=== PATIENT | female | born 1975 | race Caucasian/White ===

== ENCOUNTER 2018-05-01 06:37 | Emergency (ER) | payer MEDICARE, SELFPAY ==
[2018-05-01 06:38] VITALS: BP 129/84; PULSE 74; RESP 18; TEMP 36.5; O2SAT 96; BMI 48.1
[2018-05-01] MEDS: Ketorolac 30 MG/ML Syringe IM (06:57)
--- NOTE | 2018-05-01 07:03 | ED.DCSUM_ITS ---
- ER Visit Summary Date of Service: 05/01/18 Chief Complaint: Left shoulder pain History of Present Illness: The patient is a 42 F presenting for evaluation secondary to left shoulder pain. Patient reports that she intermittently has issues with arthritis of the left shoulder. Patient states that back when she lived in [place] she would go to her primary care physician who would do steroid injections for her that would improve this. Patient states that her last steroid injection was back in 2014. Patient reports that over the course the last day and a half she has had an onset of left shoulder pain. This was atraumatic, continuous and sharp in nature and worse with any sort of movement. She denies any presence of fevers. Physical Examination: Examination of the patient's upper extremity shows normal pulses normal distal sensation normal range of motion of the elbow wrist and hand. Patient has limited range of motion of the left shoulder secondary to pain. There is tenderness palpation mainly over the anterior of the joint, but some diffusely. No evidence of warmth erythema or effusion. No evidence of laxity with testing of the rotator cuff. Test Results: None indicated Emergency Department Course and Treatment: Patient presenting with left shoulder pain. Patient will be treated with Toradol in the emergency department and a Medrol pack at home. She will be given a referral to orthopedics. Disposition: Discharge Impression: 1. Left shoulder strain This note was generated with [employer] dictation software. It may contain incorrect words, spelling, and punctuation that were not noted in review of the chart prior to signing ED Disposition - Plan for ED Patient: Disposition: Home or Assisted Living Chief Complaint: Upper Extremity Injury Diagnosis: Shoulder pain, acute Instructions: ED Tendinitis Rotator Cuff Prescriptions: MethylPREDNISolone DosePak [Medrol DosePak] 4 mg PO UD #1 box Referrals: Galen Jauregui MD [STAFF PHYSICIAN] - 1 Week
== END 2018-05-01 07:22 | disposition home or self-care (01) ==
PROVIDERS: Emergency Provider Emergency Medicine; Family Provider Physician Assistant; PCP Physician Assistant
DX: S46.012A Strain of muscle(s) and tendon(s) of the rotator cuff of left shoulder, initial encounter (principal); M19.012 Primary osteoarthritis, left shoulder; X58.XXXA Exposure to other specified factors, initial encounter; Y93.9 Activity, unspecified; Y92.9 Unspecified place or not applicable; K21.9 Gastro-esophageal reflux disease without esophagitis; G40.909 Epilepsy, unspecified, not intractable, without status epilepticus; Z79.899 Other long term (current) drug therapy
CPT/HCPCS: 96372; 99282

== ENCOUNTER 2018-07-08 16:41 | Emergency (ER) | payer MEDICARE, SELFPAY ==
[2018-07-08 16:44] VITALS: BP 127/82; PULSE 71; RESP 18; TEMP 36.6; O2SAT 99; BMI 47.2
--- NOTE | 2018-07-08 16:54 | ED.DCSUM_ITS ---
- ER Visit Summary Date of Service: 07/08/18 Chief Complaint: Left shoulder pain History of Present Illness: The patient is a 42 F who has left shoulder pain. She has had pains for 3 months. She was seen here 3 months ago and then had follow-up with orthopedics. They did an injection in the shoulder and it felt better. Pain got worse recently. Is worse with movement. She has been trying Tylenol and Advil without any relief. She denies any falls or trauma. She states that she has issues with her shoulder for a while. Physical Examination: Vital signs reviewed. Left shoulder exam reveals tenderness over the AC joint and the coracoid area. There is no deltoid tenderness. She has limited range of motion secondary to the pain. She has 2+ radial pulses. Test Results: None performed Emergency Department Course and Treatment: This seems to be a chronic issue for this patient. Without any falls or trauma I do not feel the patient requires any imaging. I will give her a shot of Toradol here. I will give her a Medrol Dosepak for home. She will need to follow-up with Galen Jauregui again for a possible shoulder injection. Treatment Plan: [] Disposition: Discharge Impression: Left shoulder pain This note was generated with [employer] dictation software. It may contain incorrect words, spelling, and punctuation that were not noted in review of the chart prior to signing ED Disposition - Plan for ED Patient: Chief Complaint: Upper Extremity Injury Referrals: Mike Rodriguez PA [Primary Care Provider] -
--- NOTE | 2018-07-08 16:54 | ED.DEP ---
ED Disposition - Plan for ED Patient: Disposition: Home or Assisted Living Chief Complaint: Upper Extremity Injury Instructions: ED Shoulder Pain [facility] Prescriptions: MethylPREDNISolone DosePak [Medrol DosePak] 4 mg PO UD #1 box Referrals: Mike Rodriguez PA [Primary Care Provider] -
[2018-07-08] MEDS: Ketorolac 60 MG/2 ML Vial IM (17:03)
[2018-07-08 17:26] VITALS: RESP 14
== END 2018-07-08 17:27 | disposition home or self-care (01) ==
LOC: ED 17:05
PROVIDERS: Emergency Provider Emergency Medicine; Family Provider Physician Assistant; PCP Physician Assistant
DX: M25.512 Pain in left shoulder (principal); G89.29 Other chronic pain; J45.909 Unspecified asthma, uncomplicated; G40.909 Epilepsy, unspecified, not intractable, without status epilepticus; Z79.899 Other long term (current) drug therapy
CPT/HCPCS: 96372; 99282

== ENCOUNTER 2018-11-28 17:39 | Emergency (ER) | payer MEDICARE, SELFPAY ==
[2018-11-28 17:39] VITALS: BP 141/92; PULSE 83; RESP 16; TEMP 36.3; O2SAT 97; BMI 47.7
--- NOTE | 2018-11-28 18:05 | ED.DCSUM_ITS ---
- ER Visit Summary Date of Service: 11/28/18 Chief Complaint: Left shoulder pain History of Present Illness: The patient is a 43 F with left shoulder pain that started today. Worse after helping her son move. No direct trauma. No weakness or numbness. Patient has a history of chronic shoulder pain. Physical Examination: Patient has anterior left shoulder tenderness to palpation. No deformity. Range of motion painful but intact. Neurovascularly intact distally. No warmth or redness. Heart regular. Lungs clear. Skin appears unremarkable. Test Results: None indicated Emergency Department Course and Treatment: I suspect this is a strain from overuse. No indication for imaging. No risk factors or direct trauma. Patient will need medical treatment at this point. She received pain pills here as well as an anti-inflammatory. Will prescribe anti-inflammatories and muscle relaxers. Patient will follow-up with primary care for recheck. Treatment Plan: As above Disposition: Discharge Impression: 1. Left shoulder pain This note was generated with [employer] dictation software. It may contain incorrect words, spelling, and punctuation that were not noted in review of the chart prior to signing ED Disposition - Plan for ED Patient: Referrals: Mike Rodriguez PA [Primary Care Provider] -
--- NOTE | 2018-11-28 18:07 | ED.DEP ---
ED Disposition - Plan for ED Patient: Instructions: ED Sprain Shoulder Prescriptions: Ibuprofen [Motrin] 800 mg PO TID PRN PRN #20 tab PRN Reason: Pain cycloBENZAPRine HCl [Flexeril] 10 mg PO TID PRN #20 tab PRN Reason: Muscle Spasm Referrals: Mkie Rodriguez PA [Primary Care Provider] -
[2018-11-28] MEDS: HYDROcodone Bitartrate/Apap 5/325 Tablet PO (18:20)
[2018-11-28] MEDS: Ibuprofen 600 MG Tablet PO (18:20)
[2018-11-28 18:29] VITALS: PULSE 80; RESP 17; O2SAT 97
== END 2018-11-28 18:30 | disposition home or self-care (01) ==
PROVIDERS: Emergency Provider Emergency Medicine; Family Provider Physician Assistant; PCP Physician Assistant
DX: M25.512 Pain in left shoulder (principal); G89.29 Other chronic pain; G40.909 Epilepsy, unspecified, not intractable, without status epilepticus; E03.9 Hypothyroidism, unspecified; K90.0 Celiac disease; Z79.899 Other long term (current) drug therapy
CPT/HCPCS: 99283

== ENCOUNTER → 2019-01-17 | Outpatient (CLI) | payer MEDICARE, SELFPAY ==
--- NOTE | 2019-01-24 10:40 | STRESSREP ---
Stress Test Report Date: 01/17/2019 Procedure: Pharmacologic stress nuclear imaging study Indications: Shortness of breath with exertion Consent: Per the patient Procedure: The patient underwent pharmacologic (Regadenoson) evaluation with a peak heart rate of 121 beats per minute (69 %predicted maximal heart rate) and a peak blood pressure of 124/70 mmHg. The baseline ECG demonstrated normal sinus rhythm. EKG during lexiscan infusion revealed no significant change from baseline. EKG post infusion revealed no significant change from baseline [There were no cardiac dysrhythmias pretest, during pharmacologic infusion, or recovery]. [There was no complaint of chest discomfort during pharmacologic infusion or recovery]. The examination was discontinued secondary to completion of protocol. Impression: 1. Lexiscan stress test test is negative for Lexiscan infusion induced EKG changes of ischemia. 2. Lexiscan stress test test is negative for Lexiscan infusion induced chest pain. 3. Results of the nuclear portion of the test is as below Myocardial perfusion imaging study: Technique: The patient was injected with 14.6 millicuries of technetium 99m Cardiolite and subsequently rest SPECT Cardiolite nuclear imaging was obtained in the horizontal long, vertical long, and short axis views. The patient underwent pharmacologic (Regadenoson) evaluation. Please see above for details. The patient was injected with 44.4 millicuries of technetium 99m Cardiolite and subsequently stress SPECT Cardiolite nuclear imaging was obtained in the horizontal long, vertical long, and short axis views. A gated Cardiolite study at peak stress was obtained. Interpretation: Rest and stress SPECT Cardiolite nuclear imaging status post realignment, normalization, and attenuation correction demonstrate normal myocardial radioisotope uptake. There is extracardiac uptake adjacent to the inferior wall on both the rest and stress images. Gated images reveal hypokinesis of the basal portion of the heart, which is probably artifactual. The reported LVEF is 44 % which could be an underestimation due to the extracardiac uptake. Impression: 1. There is no evidence of significant ischemia or infarction. 2. Estimated ejection fraction is 44% which could be erroneous. Consider other modalities such as echocardiogram to evaluate ejection fraction if clinically indicated This note was generated with [employer] software. It may contain incorrect words, spelling, and punctuation that were not noted in checking the note before signing.
== END | disposition home or self-care (01) ==
LOC: CVS 06:13
PROVIDERS: Family Provider Family Medicine; PCP Family Medicine; Referring Provider Family Medicine; Visit Provider Family Medicine
DX: R06.02 Shortness of breath (principal)
CPT/HCPCS: 78452; 93017; A9500; A4216; J2785

== ENCOUNTER 2019-02-17 18:29 | Emergency (ER) | payer MEDICARE, SELFPAY ==
[2019-02-17 18:31] VITALS: BP 104/71; PULSE 76; RESP 25; TEMP 36.5; O2SAT 100; BMI 49.4
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
[2019-02-17] MEDS: Ipratropium/Albuterol Sulfate 3 ML AMPUL.NEB INHALATION (19:09)
[2019-02-17 19:10] VITALS: PULSE 71; RESP 18
[2019-02-17] MEDS: predniSONE 20 MG Tablet 60 MG PO (19:21)
--- NOTE | 2019-02-17 19:53 | ED.VISSUMM ---
- ER Visit Summary Date of Service: 02/17/19 Chief Complaint: Wheezing History of Present Illness: The patient is a 43 F with wheezing for 2 months. Symptoms are associated with coughing. Denies sputum or fevers. She has tried nebulizers and inhalers with minimal improvement. She is not currently on steroids or antibiotics. Patient denies any history of heart disease or PE. She does have a history of asthma. Physical Examination: Afebrile and vital signs unremarkable. Speaking in full sentences without any acute distress. HEENT exam unremarkable. Airway intact. Lungs show wheezing bilaterally with expiration. Heart regular. Calves soft and supple. No edema. Pulses strong and equal. Test Results: Chest x-ray negative. Emergency Department Course and Treatment: Patient treated with aerosols and prednisone. This is likely bronchospasm. Nothing to suggest ACS, PE, dissection, or infectious process. She will follow-up with her physician. Return for any new or worsening issues. Treatment Plan: As above Disposition: Discharge Impression: 1. Bronchospasm This note was generated with [employer] dictation software. It may contain incorrect words, spelling, and punctuation that were not noted in review of the chart prior to signing ED Disposition - Plan for ED Patient: Referrals: Jose Qureshi MD [Primary Care Provider] -
--- NOTE | 2019-02-17 19:55 | ED.DEP ---
ED Disposition - Plan for ED Patient: Instructions: ASTHMA, Acute (Adult) Prescriptions: Prednisone 10 mg PO UD #33 tab Prescription Printed Referrals: Jose Qureshi MD [Primary Care Provider] -
[2019-02-17 20:01] VITALS: BP 100/74; PULSE 77; RESP 22; O2SAT 98
== END 2019-02-17 20:01 | disposition home or self-care (01) ==
LOC: ED 19:14
PROVIDERS: Emergency Provider Emergency Medicine; Family Provider Family Medicine; PCP Family Medicine
DX: J98.01 Acute bronchospasm (principal); R51 Headache; J45.909 Unspecified asthma, uncomplicated; K21.9 Gastro-esophageal reflux disease without esophagitis; E03.9 Hypothyroidism, unspecified; G40.909 Epilepsy, unspecified, not intractable, without status epilepticus; Z79.899 Other long term (current) drug therapy; Z87.891 Personal history of nicotine dependence
CPT/HCPCS: 71046; 94640; 99283

== ENCOUNTER 2019-02-22 19:45 | Emergency (ER) | payer MEDICARE, SELFPAY ==
[2019-02-22 19:46] VITALS: BP 130/75; PULSE 88; RESP 15; TEMP 37.1; O2SAT 95; BMI 47.8
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
[2019-02-22] MEDS: Ketorolac 60 MG/2 ML Vial IM (20:23)
[2019-02-22] MEDS: Orphenadrine 60 MG/2 ML Ampul IM (20:23)
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
== END 2019-02-22 21:26 | disposition home or self-care (01) ==
PROVIDERS: Emergency Provider Emergency Medicine; Family Provider Family Medicine; PCP Family Medicine
DX: S16.1XXA Strain of muscle, fascia and tendon at neck level, initial encounter (principal); S39.012A Strain of muscle, fascia and tendon of lower back, initial encounter; V43.62XA Car passenger injured in collision with other type car in traffic accident, initial encounter; Y93.9 Activity, unspecified; Y92.9 Unspecified place or not applicable; E66.9 Obesity, unspecified; E03.9 Hypothyroidism, unspecified; F41.9 Anxiety disorder, unspecified; G40.909 Epilepsy, unspecified, not intractable, without status epilepticus; Z79.899 Other long term (current) drug therapy; Z87.891 Personal history of nicotine dependence
CPT/HCPCS: 72040; 72100; 96372; 99282

== ENCOUNTER → 2019-05-06 13:38 | Outpatient (CLI) | payer MEDICARE, SELFPAY ==
[2019-05-06 13:27] VITALS: BMI 46.9
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
== END ==
LOC: HPRAD 13:39
PROVIDERS: Family Provider Family Medicine; PCP Family Medicine; Referring Provider Orthopaedic Surgery; Visit Provider Orthopaedic Surgery
DX: M25.562 Pain in left knee (principal)
CPT/HCPCS: 73564

== ENCOUNTER 2021-12-04 10:59 | Observation (INO) | payer MEDICARE, SELFPAY ==
[2021-12-04] VITALS (12 sets, daily range): BP systolic 110–139; BP diastolic 72–112; PULSE 72–102; RESP 15–18; TEMP 36.2–36.9; O2SAT 94–100; BMI 46.3
--- NOTE | 2021-12-04 | APP_PTH ---
PATIENT: JI MENA LOC: [facility] U#:[id number] AGE/SX: 46/F ROOM: [facility] [place] RE12/04/[address]: Dr. Rama Holguin MD : 1975 BED: 1 DIS: 12/05/2021 SPEC #: [id number] RECD: 12/06/21 09:16 STATUS: ARIS REQ #: [id number] TRENT: 12/04/21 00:[address]: Rama Holguin DEPT: SURGICAL PATHOLOGY RECD BY: Wale Bates ENTERED: 12/06/21 09:51 SP TYPE: APPENDIX OTHR DR: Dr. Jose Qureshi MD Tissues: Appendix, NOS Procedures: Surgery Specimen Level III HEADER OPERATION: Laparoscopic appendectomy PRE-OP DIAGNOSIS: Acute appendicitis TISSUE SUBMITTED: Appendix MICROSCOPIC DIAGNOSIS Appendix, appendectomy: Acute appendicitis. AM:leonora 12/07/2021 MICROSCOPIC DESCRIPTION Slides are reviewed. GROSS DESCRIPTION Received in fixative is one container labeled with the patient's name and designated appendix. The specimen consists of an appendix measuring 4 cm in length and up to 0.8 cm in diameter. The attached periappendiceal adipose tissue measures up to 1 cm in width. The serosa is congested. No obvious perforation is identified. The lumen does not contain any fecalith. Assurance Senior sections are submitted in one cassette. / SJ:rg 12/06/2021 TC:2 CPT: 79454
--- NOTE | 2021-12-04 11:19 | CT_ITS ---
We are attempting to reach an attending provider to discuss findings. An addendum with communication details will be sent when the communication is complete. STUDY: CT ABDOMEN AND PELVIS WITH CONTRAST REASON FOR EXAM: Female, 46 years old. Abdominal pain RADIATION DOSAGE (If Supplied By Facility): CTDIvol = ( 17.07 ) mGy, DLP = ( 1379.28 ) mGycm TECHNIQUE: Transaxial images were obtained from the dome of the diaphragm to the symphysis pubis without oral contrast. IV 100mL Isovue-370 was administered. Sagittal and coronal images were reconstructed. Individualized dose optimization techniques were used for this CT. COMPARISON: None. FINDINGS: The visualized lung bases are unremarkable. The visualized portions of the heart are within normal limits. Mild diffuse fatty infiltration of the liver. Normal gallbladder and extrahepatic biliary system. Normal spleen. There is diffuse atrophy of the pancreas. Normal bilateral adrenal glands. Normal right kidney. Normal left kidney. Normal visualized stomach. Normal small intestine. The sigmoid colon is not well-distended. No evidence of acute diverticulitis. Mild thickening of the appendix measuring about 8 to 9 mm with subtle periappendiceal stranding suggestive of early acute appendicitis. Normal abdominal aorta. Normal inferior vena cava. Normal retroperitoneum. Normal urinary bladder. There is absence of the uterus consistent with a prior hysterectomy. There is a small umbilical hernia containing fat. No demonstrated acute osseous changes. CT/Abdomen/Pelvis W IV Cont ONLY IMPRESSION: Mild thickening of the appendix with mild periappendiceal stranding suggestive of early acute appendicitis. Electronically Signed: Gilles Tellez MD at 12:42 EDT ,
--- NOTE | 2021-12-04 11:20 | EX.ED.DYSGE1 ---
HPI History of Present Illness Chief Complaint: Abd Pain Informant: patient Narrative Narrative: Patient started with right mid quadrant abdominal pain last night about 8 PM. She states she was yawning when this was first noticed but she does not know if that caused it. She had eaten a high fat cheesy sour cream fried potato meal that evening. However, she points really to the lower abdomen as the area of pain not the right upper quadrant. The triage note mentions that she gets pain when she takes a deep breath. She states that she does not really get pain with a deep breath but if she yawns and stretches she gets increase in pain. She did eat this morning. She is not sure if it made it worse or not. She has not had nausea vomiting or diarrhea. Denies urinary symptoms. Occasionally the pain will wrap around toward the back but not always. She states she always has some back pain and its not really different than baseline. She has not been syncopal or presyncopal. She has no chest pain dyspnea cough hemoptysis leg swelling. She has had no recent travel surgery immobilization personal or family history of DVT or PE. Where she points to the pain is clearly well below the rib level. It is nowhere near the lungs. [facility] Medical History Hypothyroid Seizures Home Medications levothyroxine 200 mcg PO QHS 04/20/16 [History Last Taken 05/25/17 06:00] omeprazole 20 mg PO DAILY 04/20/16 [History Last Taken 05/25/17 06:00] melatonin 5 mg PO QHS 08/04/16 [History Last Taken Unknown] Albuterol Aerosols 1 dose IH Q4H PRN PRN 02/17/19 [History Last Taken Unknown] lamotrigine 200 mg PO BID 12/04/21 [History Last Taken Unknown] montelukast [Singulair] 10 mg PO DAILY 12/04/21 [History Last Taken Unknown] topiramate [Topamax] 100 mg PO QHS 12/04/21 [History Last Taken Unknown] Allergy/AdvReac Type Severity Reaction Status Date / Time No Known Allergies Allergy Verified 12/04/21 11:02 Surgical History H/O arthroscopy of left knee H/O: hysterectomy Social History Smoking Status: Unknown if ever smoked ROS ROS ED Constitutional Constitutional ED: Denies chills or fever(s) ENT ENT ED: Denies rhinorrhea or sore throat Cardiovascular Cardiovascular: Denies chest pain, palpitations or racing heartbeat Respiratory/Chest Respiratory/Chest: Denies cough, dyspnea, dyspnea on exertion or sputum Gastrointestinal Gastrointestinal: Reports abdominal pain; Denies constipation, diarrhea, melena, nausea or vomiting Genitourinary Genitourinary ED: Denies dysuria or hematuria Musculoskeletal Musculoskeletal: Denies myalgias Integumentary Denies rash Neurologic Neurologic: Denies paresthesias or weakness Endocrine Endocrinology: Denies polydipsia or polyuria Allergic/Immunologic Allergic/Immunologic ED: Denies urticaria EXAM Physical Exam Const Vital Signs: 12/04/21 11:00 12/04/21 13:09 Temperature 98.4 F Temperature Source Temporal Pulse Rate 102 H 72 Respiratory Rate 16 16 Blood Pressure 139/112 H 126/84 H Blood Pressure Mean 121 98 Pulse Ox 97 98 Oxygen Delivery Method Room Air Room Air Positive well nourished, well developed and obese General Appearance ED: well developed and NAD; Negative for cyanotic or diaphoretic Nutritional Appearance: obese HEENT Reports moist mucous membranes Eyes General Eye ED: Negative for pale conjunctiva or scleral icterus Neck no JVD Chest Wall inspection of chest normal and palpation of chest normal Chest Narrative: No pain with palpation. No pain when I have her sit up or take a deep breath. Resp normal respiratory effort and clear to auscultation bilaterally Effort and Inspection: Negative for pain with movement Auscultation: Negative for rales, rhonchi or wheezes Cardio regular rate, regular rhythm and no murmurs GI normal to inspection, nondistended, normoactive bowel sounds GI Narrative: Patient does have tenderness slightly in the right lower quadrant but none really in the right upper area. No real CVA tenderness either. I see no rashes. No rebound or guarding. Palpation: soft Back/Spine no CVA tenderness Extremity normal to inspection General Extremety ED: Negative for edema or tenderness General Extremity: Negative for edema Neuro oriented x3 Sensorium / Orientation: alert Psych mental status grossly normal Skin no rashes or lesions noted MDM MDM MDM Narrative Medical decision making narrative: Patient has a very slight elevation of white count 11.8 which is nonspecific. Electrolytes, liver function test lipase are essentially normal. Minimal elevation of alkaline phosphatase at 120. Urine is clear. Her CAT scan shows what appears to be a retrocecal appendix that has some thickening and stranding consistent with appendicitis. This is where she is tender toward the right lower quadrant right below the midline. She is not down very low but her appendix wraps up higher than his than normal. Even though her presentation and onset is unique, I think the progression of pain, constant pain, white count, tenderness and this CAT scan finding does support diagnosis of acute appendicitis. I have surgery on page at this time. I will give the patient antibiotics. I explained the situation to her and her . Lab Data Attestation: I reviewed the patient's lab results. Labs: Laboratory Results - last 24 hr 12/04/21 12/04/21 12/04/21 11:20 11:20 11:27 WBC 11.8 H RBC 5.07 Hgb 12.7 Hct 41.1 MCV 81.1 MCH 25.0 L MCHC 30.9 L RDW Std Deviation 47.4 H RDW Coeff of Anoop 16.2 H Plt Count 316 MPV 9.6 Immature Gran % (Auto) 0.400 Neut % (Auto) 67.6 Lymph % (Auto) 19.8 [place] % (Auto) 7.1 Eos % (Auto) 4.2 Baso % (Auto) 0.9 Absolute Neuts (auto) 8.0 H Absolute Lymphs (auto) 2.33 Nucleated RBC % 0 Sodium 139 Potassium 3.7 Chloride 107 Carbon Dioxide 28.0 Anion Gap 4 L BUN 14 Creatinine 0.89 Estim Creat Clear Calc 72.37 Est GFR (MDRD) Af Amer 88 Est GFR (MDRD) Non-Af 72 BUN/Creatinine Ratio 15.8 Glucose 118 H Calcium 9.0 Total Bilirubin 0.30 AST 13 L ALT 26 Alkaline Phosphatase 120 H Total Protein 7.1 Albumin 3.2 Globulin 3.9 Albumin/Globulin Ratio 0.8 L Lipase 81 Urine Color Yellow Urine Clarity Clear Urine pH 6.5 Ur Specific [place] 1.015 Urine Protein Negative Urine Glucose (UA) Normal Urine Ketones Negative Urine Occult Blood Negative Urine Nitrite Negative Urine Bilirubin Negative Urine Urobilinogen Normal Ur Leukocyte Esterase Negative Urine RBC 0 SEEN Urine WBC 0 SEEN Ur Squamous Epith Cells 0 SEEN Urine Bacteria 0 SEEN Urine Mucus 0 SEEN Radiography Diagnostic Testing: Clinical Impression(s) from Imaging Studies Abdomen/Pelvis CT 12/04/21 11:19 IMPRESSION: Mild thickening of the appendix with mild periappendiceal stranding suggestive of early acute appendicitis. Electronically Signed: Gilles Tellez MD at 12:42 EDT , ADDENDUM: 12/04/21 1257 IMPRESSION: Mild thickening of the appendix with mild periappendiceal stranding suggestive of early acute appendicitis. N.B. : The above Results were Read Back by Gilles Tellez MD to JOSE MARIA MD, and understanding confirmed on 12/04/2021 12:50:37 (ET). Electronically Signed: Gilles Tellez MD at 12:42 EDT , Discharge Plan Dx/Rx/DC Orders Clinical Impression: Acute appendicitis, Leukocytosis Disposition Disposition: Acute Care Hospital [facility] Discharge Date/Time: 12/04/21 14:31
[2021-12-04 11:28] LABS: Absolute Lymphocyte Count 2.33 X10^3/uL (0.83-4.51); Basophil% 0.9 % (0-1); Eosinophil# 0.49 X10^3/uL; Eosinophils% 4.2 % (0-5); Hematocrit 41.1 % (37-47); Hemoglobin 12.7 g/dL (12.0-15.0); Lymphocyte # 2.33 X10^3/ul (0.83-4.51); Lymphocyte % 19.8 % (19-41); Mean Corp Hgb Conc 30.9 g/dL (32-36); Mean Corpuscular Volume 81.1 fL (81-99); Mean Platelet Vol. 9.6 fl (6.2-12.0); Monocyte# 0.83 X10^3/uL; Monocyte% 7.1 % (0-10); NRBC Flagged by Analyzer 0 % (0-5); Neutrophil # 7.96 X10^3/uL (2.7-7.7); Neutrophil % 67.6 % (47-70); Platelet Count 316 K/mm3 (150-450); RBC Distribution Width CV 16.2 % (11.6-14.6); RBC Distribution Width SD 47.4 fl (35.1-43.9); Red Blood Count 5.07 M/mm3 (4.2-5.4); White Blood Count 11.8 K/mm3 (4.4-11.0)
[2021-12-04] MEDS: Ondansetron 4 MG/2 ML Vial IV (11:36)
[2021-12-04] MEDS: Morphine 4 MG/ML Syringe IV (11:36)
[2021-12-04 11:44] LABS: ALB/GLOB Ratio 0.8 RATIO (0.9-2.4); AST(SGOT) 13 U/L (15-37); Alanine Aminotransfer ALT/SGPT 26 U/L (13-56); Albumin, Serum 3.2 g/dL (3.2-5.0); Alkaline Phosphatase 120 U/L (45-117); Anion Gap 4 (5-15); BUN 14 mg/dL (7-18); BUN/Creat Ratio 15.8 RATIO (10-20); Chloride 107 mmol/L (98-107); Creatinine, Serum 0.89 mg/dL (0.55-1.02); EST Glomerular Filtration Rate 72 mL/min (>60); Est Glom Filt Rate - Afr Amer 88 mL/min (>60); Estimated Creatinine Clearance 72.37 ml/min; Globulin 3.9 g/dL (2.2-4.2); Glucose 118 mg/dL (74-106); Lipase 81 U/L (73-393); Potassium 3.7 mmol/L (3.5-5.1); Protein, Total 7.1 g/dL (6.4-8.2); Sodium Level 139 mmol/L (136-145)
[2021-12-04 11:47] LABS: Bacteria 0 SEEN /hpf (None Seen); Color, Urine Yellow (Yellow); Glucose, Dipstick Normal (Normal); Ketone-Dipstick Negative (Negative); Leukocyte Esterase-Dipstick Negative /ul (Negative); Mucous, Urine 0 SEEN /hpf (<or=2+); Nitrite-Dipstick Negative (Negative); Occult Blood-Urine Negative /ul (Negative); Protein-Dipstick Negative (Negative); Red Blood Cells-Urine 0 SEEN /hpf (0-5); Specific Gravity, Urine 1.015 (1.002-1.030); Squamous Epithelial Cells - UA 0 SEEN /hpf (5-10); Urine Bilirubin Dipstick Negative (Negative); Urine Clarity Clear (Clear); Urine Urobilinogen Normal (Normal); Urine pH 6.5 (5.0 - 8.0); White Blood Cells 0 SEEN /hpf (0-5)
--- NOTE | 2021-12-04 13:42 | HP.PCM.SX_ITS ---
HPI - General HPI Narrative JI MENA, is a 46 F who presents with < 1 day history of abdominal pain, began yesterday evening. She denies nausea/emesis. She denies fevers. She presented to [facility] ED and underwent evaluation. [facility] Medical History Hypothyroid Seizures Home Medications levothyroxine 200 mcg PO QHS 04/20/16 [History Last Taken 05/25/17 06:00] omeprazole 20 mg PO DAILY 04/20/16 [History Last Taken 05/25/17 06:00] melatonin 5 mg PO QHS 08/04/16 [History Last Taken Unknown] Albuterol Aerosols 1 dose IH Q4H PRN PRN 02/17/19 [History Last Taken Unknown] lamotrigine 200 mg PO BID 12/04/21 [History Last Taken Unknown] montelukast [Singulair] 10 mg PO DAILY 12/04/21 [History Last Taken Unknown] topiramate [Topamax] 100 mg PO QHS 12/04/21 [History Last Taken Unknown] Allergy/AdvReac Type Severity Reaction Status Date / Time No Known Allergies Allergy Verified 12/04/21 11:02 Surgical History H/O arthroscopy of left knee H/O: hysterectomy Social History Smoking Status: Unknown if ever smoked ROS Constitutional Constitutional: Denies fever(s) or weight loss Respiratory/Chest Respiratory/Chest: Denies productive cough Gastrointestinal Gastrointestinal: Reports abdominal pain Genitourinary Genitourinary: Denies hematuria Musculoskeletal Musculoskeletal: Reports joint pain Integumentary Integumentary: Reports jaundice Neurologic Neurologic: Denies focal weakness Vital Signs Vital Signs Vital Signs: 12/04/21 11:00 12/04/21 13:09 Temperature 98.4 F Temperature Source Temporal Pulse Rate 102 H 72 Respiratory Rate 16 16 Blood Pressure 139/112 H 126/84 H Blood Pressure Mean 121 98 Pulse Ox 97 98 Oxygen Delivery Method Room Air Room Air Weight Weight: 130.181 kg Body Mass Index (BMI) 46.3 Physical Exam Const oriented x3 Resp normal respiratory effort Cardio regular rate GI GI Narrative: abdomen is soft but tender in RLQ and morbidly obese Extremity no clubbing, cyanosis or edema Results Lab / Micro Data Result Diagrams: 12/04/21 11:20 12/04/21 11:20 Labs: Laboratory Results - last 24 hr 12/04/21 11:20: WBC 11.8 H, RBC 5.07, Hgb 12.7, Hct 41.1, MCV 81.1, MCH 25.0 L, MCHC 30.9 L, RDW Std Deviation 47.4 H, RDW Coeff of Anoop 16.2 H, Plt Count 316, MPV 9.6, Immature Gran % (Auto) 0.400, Neut % (Auto) 67.6, Lymph % (Auto) 19.8, [place] % (Auto) 7.1, Eos % (Auto) 4.2, Baso % (Auto) 0.9, Absolute Neuts (auto) 8.0 H, Absolute Lymphs (auto) 2.33, Nucleated RBC % 0 12/04/21 11:20: Sodium 139, Potassium 3.7, Chloride 107, Carbon Dioxide 28.0, Anion Gap 4 L, BUN 14, Creatinine 0.89, Estim Creat Clear Calc 72.37, Est GFR (MDRD) Af Amer 88, Est GFR (MDRD) Non-Af 72, BUN/Creatinine Ratio 15.8, Glucose 118 H, Calcium 9.0, Total Bilirubin 0.30, AST 13 L, ALT 26, Alkaline Phosphatase 120 H, Total Protein 7.1, Albumin 3.2, Globulin 3.9, Albumin/Globulin Ratio 0.8 L, Lipase 81 12/04/21 11:27: Urine Color Yellow, Urine Clarity Clear, Urine pH 6.5, Ur Specific [place] 1.015, Urine Protein Negative, Urine Glucose (UA) Normal, Urine Ketones Negative, Urine Occult Blood Negative, Urine Nitrite Negative, Urine Bilirubin Negative, Urine Urobilinogen Normal, Ur Leukocyte Esterase Negative, Urine RBC 0 SEEN, Urine WBC 0 SEEN, Ur Squamous Epith Cells 0 SEEN, Urine Bacteria 0 SEEN, Urine Mucus 0 SEEN Radiology Impression Abdomen/Pelvis CT 12/04/21 11:19 IMPRESSION: Mild thickening of the appendix with mild periappendiceal stranding suggestive of early acute appendicitis. Electronically Signed: Gilles Tellez MD at 12:42 EDT Reading Location ID and State: [facility] / [place] Tel , Service support , ADDENDUM: 12/04/21 1257 IMPRESSION: Mild thickening of the appendix with mild periappendiceal stranding suggestive of early acute appendicitis. N.B. : The above Results were Read Back by Gilles Tellez MD to JOSE MARIA MD, and understanding confirmed on 12/04/2021 12:50:37 (ET). Electronically Signed: Gilles Tellez MD at 12:42 EDT , Assessment & Plan Assessment/Plan (1) Acute appendicitis: PLAN: Patient is a 46 y/o morbidly obese WF with abdominal pain and acute appendicitis by CT scan I have offered laparoscopic appendectomy I have explained the procedure to the patient and her who is present with her.. I have counseled the patient as to the risks of the procedure, including but not limited to: infection, bleeding, injury to any blood vessels/nerves, scar tissue, injury to any intraabdominal organs, injury to kidney/ureters, injury to bowel/bladder, intraabdominal abscess/bleeding, hernias at incisional sites, wound infections, possible open procedure, complications of anesthesia, postoperative pneumonia/cardiac problems/blood clots etc. the patient understands. She wishes to proceed. I have answered all questions to the patient?s satisfaction and the patient has no further questions.
--- NOTE | 2021-12-04 14:26 | NURSING ---
MED SURG OBS WAND APPENDICITIS
[2021-12-04] MEDS: Lidocaine 2% /Epi 1:100 (50ml) 50 ML Vial (15:09)
--- NOTE | 2021-12-04 16:00 | PCM.OPRPT ---
Report of Operation Date of Procedure: 12/04/21 Pre-Operative Diagnosis: acute appendicitis Post-Operative Diagnosis: same as above Surgery/Procedure Performed:: laparoscopic appendectomy Description of Surgical Findings:: morbidly obese patient with acute appendicitis not perforated Surgeon: Rama Holguin monument setter helper: Suad Drummond Type of Anesthesia: General Anesthesiologist: Theresa Chandler Specimen's removed: appendix Estimated Blood Loss (mL): 25 Fluids Replaced: 300 ml RL Description of Procedure: After informed consent was obtained, the patient was brought into the operating room. Appropriate time out protocol was followed, She was then placed in the supine position on the operating table. The patient was then placed under general anesthesia. The patient?s abdomen was then prepped with a sterile surgical skin preparation and sterile surgical drapes were placed. An area above the umbilicus was grasped with penetrating clamps and the skin and subcutaneous tissues were infiltrated with local anesthetic with epinephrine. A skin incision was then made. A Veress needle was then inserted into the intraabdominal cavity and checked to be in the proper position with a normal saline drop test. A CO2 pneumoperitoneum was then created. Once this was achieved, the Veress needle was removed and an 11 mm trocar was placed in its stead. A 10 mm laparoscope was then inserted into the trocar. Careful examination of the intraabdominal contents was then done. There was no evidence of injury to any internal organs from placement of the Veress needle or the trocar. Under direct visualization, a 12mm suprapubic trocar and a 5mm periumbilical trocar and then a 5mm lateral right trocar was placed in addition for better retraction of the patient's tissues. The skin and subcutaneous tissues at these sites were first infiltrated with local anesthetic with epinephrine. Attention was then directed to the right lower quadrant. The appendix was visualized. It appeared inflamed and edematous. The mesentery of the appendix was taken down by cauterizing the tissue from the free edge to the base of the appendix with the Harmonic scalpel. Once the base of the appendix was freed of surrounding tissues, then the linear gastrointestinal stapling device was brought into the abdominal cavity via the 12mm port and placed across the base of the appendix. The stapling device was fired, thus stapling across the base of the appendix and transecting it simultaneously. The appendix was then placed in an Endobag and this was brought out through the suprapubic trocar. The appendix was then forwarded to Pathology for analysis. The appendiceal stump was carefully examined. There was some oozing for which surgicel was applied. At time of closure, there was no evidence of any active bleeding or fecal leakage. The surrounding tissues were also examined and there was no evidence of any active bleeding or fecal/bile leakage. The intraabdominal cavity was examined and there was no evidence of further inflammation or tissue abnormality. There was no evidence of any purulent peritoneal fluid. The CO2 pneumoperitoneum was released and all trocars were removed intact. The suprapubic fascia was reapproximated with a figure-of-8 vicryl suture. All skin incisions were reapproximated with monocryl suture. Cavilon and steristrips were applied to reinforce skin closure and proper sterile dressings were placed. The patient was then extubated and brought to the Recovery Room in stable condition. Complications none noted Admit VTE Documentation VTE Present on Admission: Yes VTE Mechan Device Prophylaxis: SCD's
[2021-12-04] MEDS: HYDROcodone Bitartrate/Apap 5/325 Tablet PO ×2 (18:00→21:46)
[2021-12-04] MEDS: 0.9% Normal Saline 1,000 ML 125 ML IV (18:01)
[2021-12-04] MEDS: Topiramate 100 MG Tablet PO (21:46)
[2021-12-04] MEDS: lamoTRIgine 100 MG Tablet 200 MG PO (21:46)
[2021-12-05 02:30] VITALS: BP 115/57; PULSE 86; RESP 16; TEMP 36.8; O2SAT 95
[2021-12-05] MEDS: 0.9% Normal Saline 1,000 ML 125 ML IV (05:58)
[2021-12-05] MEDS: Levothyroxine 100 MCG Tablet 200 MCG PO (06:00)
[2021-12-05] MEDS: HYDROcodone Bitartrate/Apap 5/325 Tablet PO ×3 (06:02→14:20)
[2021-12-05 08:45] VITALS: BP 101/68; PULSE 82; RESP 16; TEMP 36.6; O2SAT 96
[2021-12-05] MEDS: Montelukast 10 MG Tablet PO (10:02)
[2021-12-05] MEDS: lamoTRIgine 100 MG Tablet 200 MG PO (10:02)
[2021-12-05] MEDS: Pantoprazole Sodium 20 MG Tablet PO (10:02)
--- NOTE | 2021-12-05 11:54 | PCM.DC ---
Discharge Instructions Follow Up Care Test Results: Test results from this visit will be discussed in further detail at your follow-up appointment, if applicable. Discharge Plan Admission Admit Date/Time: 12/04/21 13:47 Attending Provider: Rama Holguin Primary Care Provider: Jose Qureshi Instructions Additional Instructions / Restrictions: Recommended pain control regimen - May take 600 mg ibuprofen (Motrin) and then in 3-4 hours, may take 650 mg acetaminophen (Tylenol), then in 3-4 hours may take 600 mg ibuprofen, then in 3-4 hours may take 650 mg acetaminophen and so on for 2-3 days May take narcotic pain medication for pain that is not controlled by above and at night for comfort through the night Leave dressings in place May shower, do not scrub in the areas of the dressings as they may unravel. If they become overly soiled you may remove them but leave incision site open to air. Do not soak - no tub baths/swimming Ice applied to areas of discomfort may help No lifting/pushing/pulling greater than 20 pounds for two weeks Stay on liquid type diet for a couple of days and then advance slowly to a regular diet as tolerated. Avoid carbonated beverages for a few days as this will cause abdominal bloating and thus discomfort after our surgery. Please call my office for an appointment to see me in 1-2 weeks. Office number is If any questions, please call my office at and ask the chief operator synthesis for the general surgery nurses desk Discharge Orders/Prescriptions Prescriptions: New hydrocodone-acetaminophen 5-325 mg tablet 1 tab PO Q8H 5 Days Qty: 15 RF: 0 No Action levothyroxine 175 MCG tablet 200 mcg PO QHS RF: 0 omeprazole 20 MG capsule 20 mg PO DAILY RF: 0 melatonin 5 MG tablet 5 mg PO QHS RF: 0 Albuterol Aerosols 1 dose IH Q4H PRN PRN (Reason: Sob &/Or Wheezing) RF: 0 lamotrigine 200 mg tablet 200 mg PO BID RF: 0 topiramate [Topamax] 100 mg Tablet 100 mg PO QHS RF: 0 montelukast [Singulair] 10 mg Tablet 10 mg PO DAILY RF: 0 Referrals / Follow Up: Jose Qureshi MD [Primary Care Provider] -
--- NOTE | 2021-12-05 11:56 | PCM.PN.SRG ---
Subjective Subjective patient with some back pain and abdominal pain loathe to ambulate or move Objective Data Objective Data Vital Signs: Vital Signs Temp Pulse Resp BP Pulse Ox 97.8 F 82 16 101/68 96 12/05/21 08:45 12/05/21 08:45 12/05/21 08:45 12/05/21 08:45 12/05/21 08:45 Oxygen Flow Rate (L/min) 2 Oxygen Delivery Method Room Air Weight: 130.181 kg Body Mass Index (BMI) 46.3 Intake & Output: Intake and Output for Last 24 Hours 12/03/21 12/04/21 12/05/21 23:59 23:59 23:59 Intake Total 1270.83 / 1270.83 622.92 / 622.92 Output Total 300 / 300 Balance 970.83 / 970.83 622.92 / 622.92 Lab / Micro Data Result Diagrams: 12/04/21 11:20 12/04/21 11:20 Micro: Microbiology 12/04/21 14:04 Nasal Secretion SARS-CoV-2 Antigen (Rapid) - Final Radiography Diagnostic Testing: Radiology Impression Abdomen/Pelvis CT 12/04/21 11:19 IMPRESSION: Mild thickening of the appendix with mild periappendiceal stranding suggestive of early acute appendicitis. Electronically Signed: Gilles Tellez MD at 12:42 EDT , ADDENDUM: 12/04/21 1257 IMPRESSION: Mild thickening of the appendix with mild periappendiceal stranding suggestive of early acute appendicitis. N.B. : The above Results were Read Back by Gilles Tellez MD to JOSE MARIA MD, and understanding confirmed on 12/04/2021 12:50:37 (ET). Electronically Signed: Gilles Tellez MD at 12:42 EDT , Physical Exam Const alert and oriented x3 Resp normal respiratory effort GI GI Narrative: abdomen is soft and obese, dressings intact Assessment & Plan Assessment/Plan (1) Status post laparoscopic appendectomy: PLAN: discharge to home patient counseled that she needs to ambulate or she is at risk for blood clots and/or pneumonia, also told patient to do incentive spirometry She can stay on liquid diet, encourage water intake (she doesn't like the taste of water because it has no taste), I have recommended that she avoid carbonated beverages for a few days She can follow up with me as an outpatient
[2021-12-05 14:21] VITALS: BP 118/81; PULSE 80; RESP 18; TEMP 36.6; O2SAT 97
== END 2021-12-05 14:58 | disposition home or self-care (01) ==
LOC: ED 14:16 → MS3 17:00
PROVIDERS: Admitting Provider Surgery; Emergency Provider Emergency Medicine; PCP Family Medicine; Visit Provider Surgery
PROC: 0DTJ4ZZ Resection of Appendix, Percutaneous Endoscopic Approach (ICD-10-PCS; CPT 44970; principal; 2021-12-04 14:30)
DX: K35.80 Unspecified acute appendicitis (principal); E66.01 Morbid (severe) obesity due to excess calories; Z68.42 Body mass index [BMI] 45.0-49.9, adult; G40.909 Epilepsy, unspecified, not intractable, without status epilepticus; E03.9 Hypothyroidism, unspecified; Z79.899 Other long term (current) drug therapy; Z79.890 Hormone replacement therapy
CPT/HCPCS: 44970; 00840; 74177; 80053; 81001; 83690; 85025; 87811; 88304; 96361; 96365; 96366; 96375; 99218; 99251; 99284; J7030; J7040; Q9967; A4216; G0378; G0463; J2405

== ENCOUNTER → 2022-02-14 | Outpatient (CLI) | payer MEDICARE, SELFPAY ==
--- NOTE | 2022-02-14 17:15 | NEURO ---
NCS and/or EMG Patient Report Ordering Doctor: Abhijeet Jimenez DATE OF SERVICE: 02/14/22 Indication: One year history of intermittent numbness and tingling in the left hand. Findings: Nerve conduction studies were performed in the left upper extremity. The left median motor study recording the abductor pollicis brevis showed a normal amplitude, normal distal latency and normal conduction velocity. The left ulnar motor study recording the abductor digiti minimi showed a normal amplitude, normal distal latency and normal conduction velocity. Focal slowing was present across the elbow. The right median sensory response recording digit two showed a normal amplitude, latency and conduction velocity. The right ulnar sensory response recording digit five showed a reduced amplitude, normal latency and normal conduction velocity. The right radial sensory response recording over the extensor snuff box showed a normal amplitude, latency and conduction velocity. Needle EMG of the right upper extremity muscles was performed. No denervation was seen in any muscle. Motor units in the first dorsal interosseous were large amplitude and long duration with slightly reduced recruitment. Motor units in the flexor digitorum profundus were slightly large, but otherwise unremarkable. All other motor unit morphology, activation and recruitment patterns were normal. Impression: This is an abnormal study. 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 The pathophysiology is predominantly demyelinating, though there is evidence of chronic, secondary axonal injury. There is no active denervation, however, to suggest ongoing axonal injury. Rodney Coles D.O. Multi Select Codes Neurology Neurology Interp Codes: 60862-62 Musc test done w/n test comp (interp) and 75928-02 Nrv cndj test 7-8 studies (interp)
== END | disposition home or self-care (01) ==
LOC: PSN 15:34
PROVIDERS: PCP Family Medicine; Referring Provider Orthopaedic Surgery; Visit Provider Orthopaedic Surgery
DX: G56.02 Carpal tunnel syndrome, left upper limb (principal)
CPT/HCPCS: 95886; 95910

== ENCOUNTER 2022-04-09 20:25 | Emergency (ER) | payer MEDICARE, SELFPAY ==
[2022-04-09 20:26] VITALS: BP 141/97; PULSE 97; RESP 16; TEMP 35.9; O2SAT 100; BMI 48.6
--- NOTE | 2022-04-09 20:36 | EX.ED.DYSGE1 ---
HPI History of Present Illness Chief Complaint: Wound Check Detail of Chief Complaint: Wound check for left elbow Informant: patient and spouse/S.O. Narrative Narrative: Patient presents the emergency department with concern for infection to the left elbow. Patient states that she had surgery by Dr. Jimenez on March 16 to move a nerve in her elbow. 2 days ago she noticed some increased redness to the wound. She denies any drainage from the wound. She denies any fever. Patient feels like the redness may have gotten little bit worse and she is worried about infection. Patient states that she sent pictures to Dr. Jimenez 2 days ago of the wound but has not received a response back. [facility] Medical History (Updated 04/09/22 @ 21:[address] Parth Case, ) GERD (gastroesophageal reflux disease) Hypothyroid Seizures Home Medications levothyroxine 175 mcg tablet 200 mcg PO QHS 04/20/16 [History Last Taken 12/04/21] omeprazole 20 mg capsule,delayed release 20 mg PO DAILY 04/20/16 [History Last Taken 12/04/21] melatonin 5 mg tablet 5 mg PO QHS 08/04/16 [History Last Taken Unknown] Albuterol Aerosols 1 dose IH Q4H PRN PRN Sob &/Or Wheezing 02/17/19 [History Last Taken Unknown] lamotrigine 200 mg tablet 200 mg PO BID 12/04/21 [History Last Taken 12/04/21] montelukast 10 mg tablet (Singulair) 10 mg PO DAILY 12/04/21 [History Last Taken 12/04/21] topiramate 100 mg tablet (Topamax) 100 mg PO QHS 12/04/21 [History Last Taken 12/04/21] hydrocodone-acetaminophen 5-325mg 5mg-325mg 1 tab PO Q8H 5 days #15 tabs 12/05/21 [Rx Last Taken Unknown] cephalexin 500 mg capsule 500 mg PO Q6 #40 CAPSULES 04/09/22 [Rx Last Taken Unknown] Allergy/AdvReac Type Severity Reaction Status Date / Time No Known Allergies Allergy Verified 04/09/22 20:26 Surgical History H/O arthroscopy of left knee H/O: hysterectomy Status post laparoscopic appendectomy Social History Smoking Status: Never smoker ROS ROS ED Constitutional Constitutional ED: Reports systems reviewed and no addt'l complaints, except as documented; Denies body ache(s), change in weight or chills Eyes Eyes: Denies acute decrease in peripheral vision, change in vision, double vision or loss of vision ENT ENT ED: Reports none; Denies ear pain, lip swelling, loss taste/smell, neck pain, otalgia or sore throat Cardiovascular Cardiovascular: Reports none; Denies abdominal pain, chest pain with activity, leg edema, lightheadedness, palpitations, rapid heart rate or syncope Respiratory/Chest Respiratory/Chest: Reports none; Denies change in mental status, dry cough, dyspnea, hemoptysis, shortness of breath at rest or shortness of breath with exertion Gastrointestinal Gastrointestinal: Reports none; Denies abdominal pain, change in stool character, diarrhea, hematemesis, hematochezia, melena, rectal bleeding or vomiting Genitourinary Genitourinary ED: Reports none; Denies abdominal discomfort, anuria, dysuria, genital pain or polyuria Musculoskeletal Musculoskeletal: Reports none; Denies arthralgias, back pain, difficulty walking, extremity pain, muscle weakness or myalgias Integumentary Reports none, rash and other Details: Redness to left elbow surgical wound ; Denies abscess Neurologic Neurologic: Reports none; Denies abnormal gait, confusion, focal weakness, frequent falls, headache(s), loss of vision, numbness, paresthesias, radicular pain, vertigo or weakness Psychiatric Psychiatric: Reports systems reviewed and no addt'l complaints, except as documented and none; Denies behavioral changes, confusion, difficulty concentrating, hallucinations, suicidal ideation, tactile hallucinations or visual hallucinations Endocrine Endocrinology: Denies none, cold intolerance, excessive sweating, fatigue or heat intolerance Hematologic/Lymphatic Hematologic/Lymphatic: Reports none; Denies anemia, easy bleeding or easy bruising Allergic/Immunologic Allergic/Immunologic ED: Denies as per HPI, none, lip swelling, mouth swelling, throat swelling, tongue swelling or hives EXAM Physical Exam Const Vital Signs: 04/09/22 20:26 Temperature 96.6 F L Temperature Source Temporal Pulse Rate 97 Respiratory Rate 16 Blood Pressure 141/97 H Blood Pressure Mean 111 Pulse Ox 100 Oxygen Delivery Method Room Air Positive well nourished and well developed General Appearance ED: well developed and NAD HEENT Reports TM's clear and moist mucous membranes normocephalic and atraumatic; Negative for trauma or tenderness Tympanic Membrane ED: Yes TM's clear Eyes PERRL and EOMs intact bilaterally General Eye ED: Negative for pale conjunctiva or scleral icterus Neck no lymphadenopathy, supple and no JVD General: Negative for tenderness Chest Wall inspection of chest normal and palpation of chest normal Chest: Negative for tenderness Resp normal respiratory effort and clear to auscultation bilaterally Effort and Inspection: Negative for respiratory distress or pain with movement Auscultation: Negative for rhonchi, wheezes or diminished lung sounds Cardio regular rate, regular rhythm, S1 normal heart sound, S2 normal heart sound and no murmurs Peripheral Pulses: pulses 2+ throughout GI normal to inspection, nondistended, normoactive bowel sounds, soft to palpation, non-tender, non-distended and no masses Back/Spine no CVA tenderness and no thoracic nor lumbar tenderness Extremity Extremity Narrative: Left elbow-there is a healing surgical wound to the ulnar aspect of the left elbow. There is no drainage from the wound noted. There are some faint erythema mostly through the central portion of the wound an area measuring approximately 3 by 6 cm cm in diameter. Patient has normal range of motion flexion extension at the elbow. She is neurovascular intact distally. No fluctuance noted. General Extremety ED: Negative for edema General Extremity: Negative for edema Neuro oriented x3, CN's II-XII intact bilaterally, no sensory deficits noted and gait normal Sensorium / Orientation: awake, alert, oriented to person, oriented to place and oriented to time Motor Exam: strength 5/5 throughout and strength abnormal Psych mental status grossly normal Skin no rashes or lesions noted and no wounds MDM MDM MDM Narrative Medical decision making narrative: I attempted to contact Dr. Jimenez unsuccessfully. At this point I did outline the area of erythema with marker. It is unclear if she is developing a superficial cellulitis versus reaction to the vitamin D ointment she has been placing on the wound. I will start her on Keflex. She is advised to follow-up with her orthopedic surgeon within next 3 to 5 days. Patient advised to return if worsening pain, increased redness, fever, or condition should worsen anyway. Patient does not have a septic joint. Discharge Plan Triage Chief Complaint: Wound Check ED Provider: Parth Case Dx/Rx/DC Orders Clinical Impression: Cellulitis of left elbow Instructions: ED Cellulitis Prescriptions: New cephalexin [cephalexin] 500 mg capsule 500 mg PO Q6 Qty: 40 0RF No Action levothyroxine 175 MCG tablet 200 mcg PO QHS omeprazole 20 MG capsule 20 mg PO DAILY melatonin 5 MG tablet 5 mg PO QHS Albuterol Aerosols 1 dose IH Q4H PRN PRN (Reason: Sob &/Or Wheezing) lamotrigine 200 mg tablet 200 mg PO BID Label Comments: TAKE 1 TABLET BY MOUTH TWICE DAILY topiramate [Topamax] 100 mg Tablet 100 mg PO QHS montelukast [Singulair] 10 mg Tablet 10 mg PO DAILY hydrocodone-acetaminophen 5-325 mg tablet 1 tab PO Q8H 5 Days Qty: 15 0RF Primary Care Provider: Jose Qureshi Referrals: Abhijeet Jimenez MD [Non-Staff] - 3-5 Days Jose Qureshi MD [Primary Care Provider] - Disposition Disposition: Home, Self Care
[2022-04-09] MEDS: Cephalexin 250 MG Capsule 500 MG PO (21:10)
== END 2022-04-09 21:17 | disposition home or self-care (01) ==
PROVIDERS: Emergency Provider Emergency Medicine; PCP Family Medicine; Visit Provider Emergency Medicine
DX: L03.114 Cellulitis of left upper limb (principal)
CPT/HCPCS: 99281; 99283

== ENCOUNTER 2022-08-05 13:15 | Emergency (ER) | payer MEDICARE, SELFPAY ==
[2022-08-05 13:16] VITALS: BP 143/111; PULSE 87; RESP 16; TEMP 36.2; O2SAT 98; BMI 47.4
[2022-08-05 14:23] LABS: Bacteria 0 SEEN /hpf (None Seen); Mucous, Urine 0 SEEN /hpf (<or=2+); Red Blood Cells-Urine 0 SEEN /hpf (0-5); White Blood Cells 0 SEEN /hpf (0-5)
[2022-08-05 14:27] LABS: Absolute Lymphocyte Count 2.44 X10^3/uL (0.83-4.51); Absolute Neutrophil Count 6.3 X10^3/uL (2.0-7.7); Basophil# 0.11 X10^3/uL; Basophil% 1.1 % (0-1); Color, Urine Yellow (Yellow); Eosinophil# 0.52 X10^3/uL; Eosinophils% 5.1 % (0-5); Glucose, Dipstick Normal (Normal); Hematocrit 42.3 % (37-47); Hemoglobin 12.9 g/dL (12.0-15.0); Ketone-Dipstick Negative (Negative); Leukocyte Esterase-Dipstick Negative /ul (Negative); Lymphocyte # 2.44 X10^3/ul (0.83-4.51); Lymphocyte % 23.7 % (19-41); Mean Corp Hgb Conc 30.5 g/dL (32-36); Mean Corpuscular Hgb 23.9 pg (27.0-32.0); Mean Corpuscular Volume 78.5 fL (81-99); Mean Platelet Vol. 10.5 fl (6.2-12.0); Monocyte# 0.85 X10^3/uL; Monocyte% 8.3 % (0-10); NRBC Flagged by Analyzer 0 % (0-5); Neutrophil # 6.33 X10^3/uL (2.7-7.7); Neutrophil % 61.5 % (47-70); Nitrite-Dipstick Negative (Negative); Occult Blood-Urine Negative /ul (Negative); Platelet Count 374 K/mm3 (150-450); Protein-Dipstick 30 mg/dl (Negative); RBC Distribution Width CV 15.9 % (11.6-14.6); RBC Distribution Width SD 45.1 fl (35.1-43.9); Red Blood Count 5.39 M/mm3 (4.2-5.4); Urine Bilirubin Dipstick Negative (Negative); Urine Clarity Sl. Cloudy (Clear); Urine Urobilinogen Normal (Normal); White Blood Count 10.3 K/mm3 (4.4-11.0)
[2022-08-05 14:33] LABS: Calcium Oxalate Crystals Ur 1+ /hpf (<or=2+); Squamous Epithelial Cells - UA 0-5 SEEN /hpf (5-10)
[2022-08-05 14:40] LABS: Anion Gap 7 (5-15); BUN 12 mg/dL (7-18); BUN/Creat Ratio 15.7 RATIO (10-20); Calcium,Total 9.3 mg/dL (8.5-10.1); Chloride 110 mmol/L (98-107); Creatinine, Serum 0.76 mg/dL (0.55-1.02); EST Glomerular Filtration Rate 86 mL/min (>60); Est Glom Filt Rate - Afr Amer 104 mL/min (>60); Estimated Creatinine Clearance 84.75 ml/min; Glucose 99 mg/dL (74-106); Potassium 3.9 mmol/L (3.5-5.1); Sodium Level 142 mmol/L (136-145)
--- NOTE | 2022-08-05 15:04 | EX.ED.DYSGE1 ---
HPI History of Present Illness Chief Complaint: GI Bleed Informant: patient and family Narrative Narrative: Patient presents to the ED with concerns of rectal bleeding. Patient of note was seen by surgeon Dr. Amezcua 2 days ago for positive Cologuard test. She has not had a previous colonoscopy. There is outpatient plans for colonoscopy her patient September 02. She states yesterday urinated noted blood. Today she called the office had the colonoscopy moved up to August 19. However she states then had a bowel movement and noted blood with possible clots when she wiped. There is no family history of colon cancer. She has not on any anticoagulants. Denies lightheaded symptoms. Denies abdominal pain. Prior similar symptoms: No PFSH PFSH Medical History GERD (gastroesophageal reflux disease) History of arthroplasty of left elbow Hypothyroid Seizures Home Medications levothyroxine 175 mcg tablet 200 mcg PO QHS 04/20/16 [History Last Taken 12/04/21] omeprazole 20 mg capsule,delayed release 20 mg PO DAILY 04/20/16 [History Last Taken 12/04/21] melatonin 5 mg tablet 5 mg PO QHS 08/04/16 [History Last Taken Unknown] Albuterol Aerosols 1 dose IH Q4H PRN PRN Sob &/Or Wheezing 02/17/19 [History Last Taken Unknown] lamotrigine 200 mg tablet 200 mg PO BID 12/04/21 [History Last Taken 12/04/21] montelukast 10 mg tablet (Singulair) 10 mg PO DAILY 12/04/21 [History Last Taken 12/04/21] topiramate 100 mg tablet (Topamax) 100 mg PO QHS 12/04/21 [History Last Taken 12/04/21] albuterol sulfate 90 mcg/actuation aerosol inhaler 2 puff inhalation Q6H PRN 08/03/22 [History Last Taken Unknown] ammonium lactate 12 % topical cream 1 applic topical QD-BID PRN 08/03/22 [History Last Taken Unknown] cetirizine 10 mg capsule (All Day Allergy (cetirizine)) 10 mg PO DAILY PRN 08/03/22 [History Last Taken Unknown] cholecalciferol (vitamin D3) 25 mcg (1,000 unit) capsule 25 mcg PO DAILY 08/03/22 [History Last Taken Unknown] tiotropium bromide 2.5 mcg/actuation mist for inhalation (Spiriva Respimat) 2 puff inhalation DAILY 08/03/22 [History Last Taken Unknown] Allergy/AdvReac Type Severity Reaction Status Date / Time No Known Allergies Allergy Verified 08/03/22 10:26 Family History Mother Diabetes Hypertension Father Diabetes Hypertension Grandmother CVA (cerebral vascular accident) Cancer lung Aunt Breast cancer Cancer woman cancer per pt Uncle Cancer prostate Surgical History H/O arthroscopy of left knee H/O: hysterectomy Status post laparoscopic appendectomy Social History Smoking Status: Never smoker alcohol intake: current details: 4 drinks per year substance use type: does not use ROS ROS ED Constitutional Constitutional ED: Denies chills, fever(s) or sweats Eyes Eyes: Denies change in vision ENT ENT ED: Denies dysphagia or sore throat Cardiovascular Cardiovascular: Denies chest pain, leg edema, palpitations or racing heartbeat Respiratory/Chest Respiratory/Chest: Denies cough, dyspnea or dyspnea on exertion Gastrointestinal Gastrointestinal: Reports other Details: Blood in stool. ; Denies abdominal pain, diarrhea, nausea or vomiting Genitourinary Genitourinary ED: Reports hematuria; Denies dysuria or urinary frequency Musculoskeletal Musculoskeletal: Denies back pain, extremity pain or neck pain Integumentary Denies rash or wounds Neurologic Neurologic: Denies headache(s), paresthesias or weakness EXAM Physical Exam Const Vital Signs: 08/05/22 13:16 Temperature 97.2 F L Temperature Source Temporal Pulse Rate 87 Respiratory Rate 16 Blood Pressure 143/111 H Blood Pressure Mean 121 Pulse Ox 98 Oxygen Delivery Method Room Air Positive well nourished and well developed General Appearance ED: well developed and NAD HEENT Reports moist mucous membranes normocephalic and atraumatic Eyes PERRL, EOMs intact bilaterally and conjunctivae normal General Eye ED: Yes normal appearance of both eyes Neck no lymphadenopathy and supple General: Negative for tenderness Chest Wall Chest: Negative for tenderness Resp normal respiratory effort and normal air movement Effort and Inspection: symmetric chest movement; Negative for respiratory distress Cardio regular rate, regular rhythm and no murmurs Peripheral Pulses: pulses 2+ throughout GI normal to inspection, nondistended, normoactive bowel sounds and non-tender GI Narrative: Rectal with nursing present, small nonthrombosed external hemorrhoid anteriorly, digital exam with brown stools. Guaiac returned positive. Palpation: Negative for guarding or rebound tenderness present Back/Spine no CVA tenderness and no thoracic nor lumbar tenderness Extremity normal to inspection General Extremety ED: Negative for edema or tenderness General Extremity: Negative for edema Neuro oriented x3 and no sensory deficits noted Sensorium / Orientation: awake and alert Skin no rashes or lesions noted and no wounds MDM MDM MDM Narrative Medical decision making narrative: Interventions / MDM: Differential diagnosis: Rectal bleeding, internal hemorrhoids, diverticulosis, colon cancer Diagnosis considered but do not suspect: Diverticulitis without any pain. My EKG interpretation: N/A Imaging independently reviewed and interpreted by myself: N/A External documents reviewed: N/A Test considered but not ordered:N/A ED course: Patient brown stools guaiac returned positive. Hemoglobin returned at 12.9 she is not on anticoagulants. Nontender abdomen. Vitals are stable. She had positive Cologuard now positive bleeding. She will need a colonoscopy this is scheduled in 2 weeks. I did reach out to her surgeon Dr. Amezcua, who is aware of the patient's symptoms from yesterday. We will plan for her scheduled colonoscopy in 2 weeks. Discussed with patient strict return precautions otherwise outpatient follow-up. Re-evaluation: stable Disposition discussed with patient/family/significant other: Patient and family Case discussed with consulting clinician: surgery. Dr. Amezcua Lab Data Attestation: I reviewed the patient's lab results. Labs: Laboratory Results - last 24 hr 08/05/22 08/05/22 08/05/22 14:12 14:12 14:12 WBC 10.3 RBC 5.39 Hgb 12.9 Hct 42.3 MCV 78.5 L MCH 23.9 L MCHC 30.5 L RDW Std Deviation 45.1 H RDW Coeff of Anoop 15.9 H Plt Count 374 MPV 10.5 Immature Gran % (Auto) 0.300 Neut % (Auto) 61.5 Lymph % (Auto) 23.7 [place] % (Auto) 8.3 Eos % (Auto) 5.1 H Baso % (Auto) 1.1 H Absolute Neuts (auto) 6.3 Absolute Lymphs (auto) 2.44 Nucleated RBC % 0 Sodium 142 Potassium 3.9 Chloride 110 H Carbon Dioxide 25.0 Anion Gap 7 BUN 12 Creatinine 0.76 Estim Creat Clear Calc 84.75 Est GFR (MDRD) Af Amer 104 Est GFR (MDRD) Non-Af 86 BUN/Creatinine Ratio 15.7 Glucose 99 Calcium 9.3 Urine Color Yellow Urine Clarity Sl. Cloudy Urine pH 6.0 Ur Specific [place] 1.030 Urine Protein 30 H Urine Glucose (UA) Normal Urine Ketones Negative Urine Occult Blood Negative Urine Nitrite Negative Urine Bilirubin Negative Urine Urobilinogen Normal Ur Leukocyte Esterase Negative Urine RBC 0 SEEN Urine WBC 0 SEEN Ur Squamous Epith Cells 0-5 SEEN Calcium Oxalate Crystal 1+ Urine Bacteria 0 SEEN Urine Mucus 0 SEEN Discharge Plan Triage Chief Complaint: GI Bleed ED Provider: Gurjit Da Silva Dx/Rx/DC Orders Clinical Impression: Rectal bleeding, Positive colorectal cancer screening using Cologuard test Instructions: ED Lower GI Bleeding (Stable) Prescriptions: No Action ammonium lactate 12 % cream 1 applic topical QD-BID PRN albuterol sulfate 90 mcg/actuation HFA aerosol inhaler 2 puff inhalation Q6H PRN cholecalciferol (vitamin D3) 25 mcg (1,000 unit) capsule 25 mcg PO DAILY All Day Allergy (cetirizine) 10 mg capsule 10 mg PO DAILY PRN Spiriva Respimat 2.5 mcg/actuation mist 2 puff inhalation DAILY levothyroxine 175 MCG tablet 200 mcg PO QHS omeprazole 20 MG capsule 20 mg PO DAILY melatonin 5 MG tablet 5 mg PO QHS Albuterol Aerosols 1 dose IH Q4H PRN PRN (Reason: Sob &/Or Wheezing) lamotrigine 200 mg tablet 200 mg PO BID Label Comments: TAKE 1 TABLET BY MOUTH TWICE DAILY topiramate [Topamax] 100 mg Tablet 100 mg PO QHS montelukast [Singulair] 10 mg Tablet 10 mg PO DAILY Primary Care Provider: Jose Qureshi Referrals: Rick Amezcua MD [Med Staff - Active Staff] - Keep Kymberly appointment Jose Qureshi MD [Primary Care Provider] - Activity Restrictions/Additional Instructions: Hemoglobin 12.9. Hemoccult microscopic positive. Keep your plan colonoscopy on the . Monitor for worsening rectal bleeding with worsening symptoms to return. Disposition Disposition: Home, Self Care Discharge Date/Time: 08/05/22 15:55
== END 2022-08-05 15:55 | disposition home or self-care (01) ==
PROVIDERS: Emergency Provider Emergency Medicine; PCP Family Medicine; Visit Provider Emergency Medicine
DX: K62.5 Hemorrhage of anus and rectum (principal); G40.909 Epilepsy, unspecified, not intractable, without status epilepticus; R31.9 Hematuria, unspecified; K21.9 Gastro-esophageal reflux disease without esophagitis; E03.9 Hypothyroidism, unspecified; K64.4 Residual hemorrhoidal skin tags; R19.5 Other fecal abnormalities; Z79.899 Other long term (current) drug therapy; Z79.890 Hormone replacement therapy
CPT/HCPCS: 80048; 81001; 82274; 85025; 99283; A4216

== ENCOUNTER 2022-08-19 10:15 | Day surgery (SDC) | payer MEDICARE, SELFPAY ==
[2022-08-19] VITALS (7 sets, daily range): BP systolic 94–133; BP diastolic 69–79; PULSE 65–89; RESP 14–18; TEMP 35.9–36.9; O2SAT 96–100; BMI 46.6
[2022-08-19] MEDS: Lactated Ringers 1,000 ML 15 ML IV (10:57)
--- NOTE | 2022-08-19 11:14 | HP.PCM_ITS ---
History and Physical Date of Admission: 08/19/22 ?Plan: The patient had positive Cologuard test.? She has never had a colonoscopy in the past.? Plan on colonoscopy.? The patient has no upper GI symptoms. I explained endoscopy in detail to the patient.? I explained the risks including but not limited to stroke or heart attack with anesthesia, perforation of the GI tract, bleeding, infection.? I explained that any of these could necessitate further emergency surgery.? The patient understands and all questions were answered sufficiently.? The patient wishes to proceed with procedure. Rick Amezcua MD Pager: [facility] [address] [place] [address], [address] [place] [address] Office: I have examined the patient and the H&P has been reviewed. There are no clinical changes since date of exam.
--- NOTE | 2022-08-19 11:15 | COLBX_PTH ---
PATIENT: JI MENA LOC: EN U#:[id number] AGE/SX: 46/F ROOM: RE08/19/[address]: Dr. Rick Amezcua MD : 1975 BED: DIS: 08/19/2022 SPEC #: [id number] RECD: 08/19/22 12:02 STATUS: ARIS FRANK #: [id number] TRENT: 08/19/22 11:[address]: Rick Amezcua DEPT: SURGICAL PATHOLOGY RECD BY: Libia Corrigan ENTERED: 08/19/22 13:02 SP TYPE: COLON BX OTHR DR: Dr. Jose Qureshi MD Tissues: Transverse colon Procedures: Surgery Specimen Level IV HEADER OPERATION: Colonoscopy (MAC), polypectomy PRE-OP DIAGNOSIS: Positive Cologuard test TISSUE SUBMITTED: Transverse colon MICROSCOPIC DIAGNOSIS Transverse colon, biopsy: Fragments of tubular adenoma. AM:leonora 08/22/2022 MICROSCOPIC DESCRIPTION Slides are reviewed. GROSS DESCRIPTION Received in fixative is one container labeled with the patient's name and designated polyp transverse colon. The specimen consists of one salcedo-pink polyp measuring 0.6 x 0.5 x 0.3 cm. The specimen is totally submitted in one cassette. / SJ:leonora 08/19/2022 TC:5 CPT: 69222
--- NOTE | 2022-08-19 11:52 | OP.COLON_ITS ---
Patient Name: Maggi Montanez Procedure Date: 08/19/2022 11:30 AM Date of : 1975 Age: 46 Procedure: Colonoscopy Indications: Hematochezia Providers: Rick Amezcua MD Medicines: Monitored Anesthesia Care Patient Profile: This is a 46 year old female. Refer to note in patient chart for documentation of history and physical. Last Colonoscopy: none. The patient's first colonoscopy is today. Complications: No immediate complications. Procedure: Pre-Anesthesia Assessment: - Prior to the procedure, a History and Physical was performed, and patient medications and allergies were reviewed. The patient's tolerance of previous anesthesia was also reviewed. The risks and benefits of the procedure and the sedation options and risks were discussed with the patient. All questions were answered, and informed consent was obtained. Prior Anticoagulants: The patient has taken no previous anticoagulant or antiplatelet agents. After reviewing the risks and benefits, the patient was deemed in satisfactory condition to undergo the procedure. After I obtained informed consent, the scope was passed under direct vision. Throughout the procedure, the patient's blood pressure, pulse, and oxygen saturations were monitored continuously. The pediatric colonoscope was introduced through the anus and advanced to the cecum, identified by appendiceal orifice and ileocecal valve. The colonoscopy was performed without difficulty. The patient tolerated the procedure well. The quality of the bowel preparation was good. Scope In: 11:36:25 AM Scope Withdrawal Time 0 hours 7 minutes 37 seconds Scope Out: 11:47:13 AM Total Procedure Duration Time 0 hours 10 minutes 48 seconds Findings: Multiple small-mouthed diverticula were found in the sigmoid colon. A medium polyp was found in the transverse colon. The polyp was removed with a hot snare. Resection and retrieval were complete. Impression: - Diverticulosis in the sigmoid colon. - One medium polyp in the transverse colon, removed with a hot snare. Resected and retrieved. Recommendation: - Discharge patient to home. - Resume previous diet. - Continue present medications. - Await pathology results. - Repeat colonoscopy in 5 years for surveillance based on pathology results. Procedure Code(s): --- Professional --- 63745, Colonoscopy, flexible; with removal of tumor(s), polyp(s), or other lesion(s) by snare technique Diagnosis Code(s): --- Professional --- D12.3, Benign neoplasm of transverse colon (hepatic flexure or splenic flexure) K92.1, Melena (includes Hematochezia) K57.30, Diverticulosis of large intestine without perforation or abscess without bleeding CPT copyright 2017 [employer]. All rights reserved. The codes documented in this report are preliminary and upon mechanical test engineer review may be revised to meet current compliance requirements. Rick Amezcua MD 08/19/2022 11:51:29 AM This report has been signed electronically. Number of Addenda: 0 Note Initiated On: 08/19/2022 11:30 AM
--- NOTE | 2022-08-19 11:52 | OP.CCLET_ITS ---
08/19/2022 Jose Qureshi Re : Colonoscopy procedure for Maggi Delaneyr Kiera This procedure was performed on Friday, August 19, 2022. My impressions and recommendations are as follows: Impressions : - Diverticulosis in the sigmoid colon. - One medium polyp in the transverse colon, removed with a hot snare. Resected and retrieved. Recommendations : - Discharge patient to home. - Resume previous diet. - Continue present medications. - Await pathology results. - Repeat colonoscopy in 5 years for surveillance based on pathology results. My findings are described in the full procedure note, which is enclosed. If I can be of further assistance, please feel free to contact me at Doctor phone number(s): , Work: . Sincerely, Rick Amezcua MD 08/19/2022 11:51:29 AM This report has been signed electronically.
== END 2022-08-19 12:46 | disposition home or self-care (01) ==
LOC: EN 10:20 → AC 10:21
PROVIDERS: PCP Family Medicine; Referring Provider Family Medicine; Visit Provider Surgery
PROC: 0DJD8ZZ Inspection of Lower Intestinal Tract, Via Natural or Artificial Opening Endoscopic (ICD-10-PCS; CPT 45378; principal; 2022-08-19 11:10)
DX: D12.3 Benign neoplasm of transverse colon (principal); K57.30 Diverticulosis of large intestine without perforation or abscess without bleeding; K92.1 Melena; K21.9 Gastro-esophageal reflux disease without esophagitis; E03.9 Hypothyroidism, unspecified; Z79.899 Other long term (current) drug therapy; Z87.891 Personal history of nicotine dependence
CPT/HCPCS: 45385; 88305; J7120; J2405

== ENCOUNTER 2022-11-23 09:17 | Emergency (ER) | payer MEDICARE, SELFPAY ==
[2022-11-23 09:18] VITALS: BP 121/94; PULSE 84; RESP 16; TEMP 36.4; O2SAT 95
--- NOTE | 2022-11-23 09:43 | EDS_ITS ---
HPI History of Present Illness Chief Complaint: Back Informant: patient Narrative Narrative: Patient presents with pain in her back. She states she was feeling fine. She bent over to see if air was coming from an air conditioning vent near the floor. When she bent over she felt a pop or a crack in her lower back. Its more on the left side. Occasionally it radiates toward the left hip but does not get quite to that point. It is never radiated down the legs. She is urinating and moving her bowels normally. No blood in stool or urine. No history of kidney stones. The back pain is better if she stays still it is worse if she moves or twists. No other areas of pain. No lightheaded dizziness or presyncope. No abdominal pain. She is eating and drinking normally also. [facility] Medical History Asthma Back pain Easy bruising Former smoker GERD (gastroesophageal reflux disease) History of arthroplasty of left elbow History of stress test Hypothyroid Itching Migraine headache Seizures Shortness of breath on exertion Wears glasses Home Medications levothyroxine 175 mcg tablet 200 mcg PO QHS 04/20/16 [History Last Taken 12/04/21] omeprazole 20 mg capsule,delayed release 20 mg PO DAILY 04/20/16 [History Last Taken 08/19/22] lamotrigine 200 mg tablet 200 mg PO BID 12/04/21 [History Last Taken 08/19/22] montelukast 10 mg tablet (Singulair) 10 mg PO DAILY 12/04/21 [History Last Taken 12/04/21] topiramate 100 mg tablet (Topamax) 100 mg PO QHS 12/04/21 [History Last Taken 12/04/21] albuterol sulfate 90 mcg/actuation aerosol inhaler 2 puff inhalation Q6H PRN SOB 08/03/22 [History Last Taken Unknown] ammonium lactate 12 % topical cream 1 applic topical QD-BID PRN FEET 08/03/22 [History Last Taken Unknown] cetirizine 10 mg capsule (All Day Allergy (cetirizine)) 10 mg PO DAILY PRN ALLERGIES 08/03/22 [History Last Taken Unknown] cholecalciferol (vitamin D3) 25 mcg (1,000 unit) capsule 25 mcg PO DAILY 08/03/22 [History Last Taken Unknown] tiotropium bromide 2.5 mcg/actuation mist for inhalation (Spiriva Respimat) 2 puff inhalation DAILY 08/03/22 [History Last Taken Unknown] cyclobenzaprine 10 mg tablet 10 mg PO TID PRN Muscle Spasm #20 TABLETS 11/23/22 [Rx Last Taken Unknown] naproxen 500 mg tablet 500 mg PO BID #14 tabs 11/23/22 [Rx Last Taken Unknown] Allergy/AdvReac Type Severity Reaction Status Date / Time No Known Allergies Allergy Verified 11/23/22 09:19 Family History Mother Diabetes Hypertension Father Diabetes Hypertension Grandmother CVA (cerebral vascular accident) Cancer lung Aunt Breast cancer Cancer woman cancer per pt Uncle Cancer prostate Surgical History H/O arthroscopy of left knee H/O: hysterectomy Status post laparoscopic appendectomy Social History Smoking Status: Former smoker alcohol intake: current details: 4 drinks per year substance use type: does not use ROS ROS ED ROS Narrative A complete review of systems was performed and is negative except as documented in the history of present illness. Some specific details below. Constitutional: No recent fevers or chills. No rigors. Patient has not generally felt ill. He felt fine prior to this event. EYE: No discharge, visual complaints, or pain. ENT: No sinus pressure or pain. No nasal discharge. CV: No chest pain, pressure or aching. No palpitations or irregular beats. Patient has not been presyncopal or syncopal. Respiratory: No trouble breathing. No cough. No wheezing. No sputum production. No pain with breathing. GI: No abdominal pain. No nausea vomiting diarrhea. No blood in stool. No loss of bowel control. No history of AAA. : No frequency dysuria or hematuria. No incontinence or urinary retention. Musculoskeletal: No recent trauma. No swelling. Please see history of present illness. Skin: No rash. No diaphoresis. No vesicles. Neuro: No weakness or numbness. No pain radiating down leg past the knee. Only radiation is toward the left hip buttock area intermittently. No weakness of ambulation. No sensory changes in the extremities. Please see history of present illness also. Endocrine: No polyuria or polydipsia. EXAM Physical Exam Narrative Exam Narrative: CONSTITUTIONAL: Patient is nontoxic in appearance. The patient looks comfortable. Work of breathing looks normal. HEENT: No notable trauma. Mucous membranes moist. EYES: No conjunctival injection. No pallor. NECK: No meningismus. No JVD. CARDIOVASCULAR: Regular rate. Regular rhythm. No notable murmur. No JVD. RESPIRATORY: No respiratory distress. Breathing is unlabored. No wheezes. Saturations are normal at 95% on room air showing no hypoxia. GASTROINTESTINAL: Abdomen is obese but not distended. Bowel sounds are normal. No tenderness. No guarding. No rebound. No palpable mass. No bruit. GENITOURINARY: No tenderness over the bladder. No CVA tenderness. MUSCULOSKELETAL: Atraumatic. No peripheral edema. No cord. No tenderness along the deep venous system. No asymmetry. Distal pulses are intact. She does have low left paraspinal tenderness and a little bit of sciatic notch tenderness in the left buttock. Her pain is more on the left side. NEUROLOGICAL: Patient is alert and oriented. No focal deficit noted. Patient can stand on toes and heels and do squats but she is sore when she moves. Patellar reflex 1?2+ bilaterally and equal Achilles reflex 1+ bilaterally equal SKIN: No noted rashes. No diaphoresis. No vesicles noted. No notable pallor. PSYCHIATRIC: Patient is calm. Mood is appropriate. Const Vital Signs: 11/23/22 09:18 Temperature 97.6 F L Temperature Source Temporal Pulse Rate 84 Respiratory Rate 16 Blood Pressure 121/94 H Blood Pressure Mean 103 Pulse Ox 95 Oxygen Delivery Method Room Air MDM MDM MDM Narrative Medical decision making narrative: My independent interpretation of her three-view x-ray lumbar spine shows no sign of fracture or dislocation. I am actually seeing quite minimal arthritic changes. Final reading shows no evidence of lumbar spinal fracture or spondylolisthesis. I will give the patient meds as well as meds to go we discussed reasons to return and home treatment including ice and rest. Radiography Diagnostic Testing: Clinical Impression(s) from Imaging Studies Lumbar Spine X-Ray 11/23/22 09:45 IMPRESSION: No evidence of lumbar spinal fracture or spondylolisthesis. Electronically Signed: Melissa Watters MD at 10:04 EDT , Discharge Plan Triage Chief Complaint: Back ED Provider: Mark Lewis Dx/Rx/DC Orders Clinical Impression: Acute lumbosacral myofascial strain Instructions: ED Back Sprain/Strain Prescriptions: New cyclobenzaprine [cyclobenzaprine] 10 mg tablet 10 mg PO TID PRN (Reason: Muscle Spasm) Qty: 20 0RF naproxen 500 mg tablet 500 mg PO BID Qty: 14 0RF No Action ammonium lactate 12 % cream 1 applic topical QD-BID PRN (Reason: FEET) albuterol sulfate 90 mcg/actuation HFA aerosol inhaler 2 puff inhalation Q6H PRN (Reason: SOB) cholecalciferol (vitamin D3) 25 mcg (1,000 unit) capsule 25 mcg PO DAILY All Day Allergy (cetirizine) 10 mg capsule 10 mg PO DAILY PRN (Reason: ALLERGIES) Spiriva Respimat 2.5 mcg/actuation mist 2 puff inhalation DAILY levothyroxine 175 MCG tablet 200 mcg PO QHS omeprazole 20 MG capsule 20 mg PO DAILY lamotrigine 200 mg tablet 200 mg PO BID Label Comments: TAKE 1 TABLET BY MOUTH TWICE DAILY topiramate [Topamax] 100 mg Tablet 100 mg PO QHS montelukast [Singulair] 10 mg Tablet 10 mg PO DAILY Primary Care Provider: Jose Qureshi Referrals: Jose Qureshi MD [Primary Care Provider] - 3-5 Days if not improving Disposition Disposition: Home, Self Care
--- NOTE | 2022-11-23 09:45 | RAD_ITS ---
INDICATION: Trauma EXAMINATION/TECHNIQUE: X-RAY - XR Spine Lumbar 2 or 3 Views COMPARISON: CT of the abdomen and pelvis dated December 04, 2021 FINDINGS: VERTEBRAE: Preserved vertebral body height. No fracture. No spondylolisthesis. Preservation of the normal lumbar lordosis. No significant facet arthropathy. DISCS: Disc spaces are maintained. INCLUDED ABDOMEN: Included bowel gas pattern is non-obstructive. There is a tubal ligation clip within the pelvis right of midline. RAD/Lumbar Spine 2 or 3 Views IMPRESSION: No evidence of lumbar spinal fracture or spondylolisthesis. Electronically Signed: Melissa Watters MD at 10:04 EDT ,
[2022-11-23] MEDS: Ketorolac 60 MG/2 ML Vial IM (10:30)
[2022-11-23] MEDS: Orphenadrine 60 MG/2 ML Ampul IM (10:31)
== END 2022-11-23 10:57 | disposition home or self-care (01) ==
PROVIDERS: Emergency Provider Emergency Medicine; PCP Family Medicine; Visit Provider Emergency Medicine
DX: S39.012A Strain of muscle, fascia and tendon of lower back, initial encounter (principal); Z87.891 Personal history of nicotine dependence; X50.1XXA Overexertion from prolonged static or awkward postures, initial encounter; E03.9 Hypothyroidism, unspecified; K21.9 Gastro-esophageal reflux disease without esophagitis; J45.909 Unspecified asthma, uncomplicated; Z79.899 Other long term (current) drug therapy; Z79.51 Long term (current) use of inhaled steroids; Z90.49 Acquired absence of other specified parts of digestive tract; Z90.710 Acquired absence of both cervix and uterus
CPT/HCPCS: 72100; 96372; 99282